=== PATIENT | male | born 1995 | race Caucasian/White ===

== ENCOUNTER 2021-10-26 21:18 | Emergency (ER) | payer SELFPAY ==
[~2021-10-26] VITALS: Ht 180.3 cm; Wt 95.3 kg
[2021-10-26 21:41] VITALS: BP 126/73
--- NOTE | 2021-10-26 21:45 | NUR ---
PT TO BED #3
--- NOTE | 2021-10-26 22:02 | NUR ---
Patient being evaluated by physician at bedside.
[2021-10-26] MEDS ORDERED: ALBUTEROL SULFATE/IPRATROPIU 3 ML SOL IH ONE ×2 (22:05→22:10)
--- NOTE | 2021-10-26 22:13 | NUR ---
RT IN PROGRESS
--- NOTE | 2021-10-26 22:21 | NUR ---
TORI SWAB AND INF A & b SWABS OBTAINED AND SENT TO LAB
[2021-10-26] MEDS ORDERED: ALBU0.0912 IH (22:38)
[2021-10-26 23:08] VITALS: BP 126/73
--- NOTE | 2021-10-26 23:08 | NUR ---
Patient discharged with v/s stable. Written and verbal after care instructions given and explained. Patient alert, oriented and verbalized understanding of instructions. Ambulatory with steady gait. All questions addressed prior to discharge. ID band removed. Patient advised to follow up with PMD. Rx of PROVENTIL given. Patient educated on indication of medication including possible reaction and side effects. Opportunity to ask questions provided and answered.
== END 2021-10-26 23:08 | disposition home or self-care (01) ==
LOC: MED 21:18
DX: R06.02 Shortness of breath (principal); Z20.822 Contact with and (suspected) exposure to COVID-19
CPT/HCPCS: 71045; 94640; 99284